=== PATIENT | male | born 1970 | race Caucasian/White ===

== ENCOUNTER 2017-03-21 13:16 | Emergency (ER) | payer SELFPAY ==
[~2017-03-21] VITALS: Ht 187.9 cm; Wt 83.9 kg
[~2017-03-21 13:16] MED LIST: BACTRIM DS 8001 TA1 PO; CLINDAMYCIN HC300 MG PO; CLINDAMYCIN150 MG PO; KEFLEX500 MG PO; LIDOCAINE HCL100 M1 MM; MOTRIN800 MG PO; NAPROSYN500 MG PO; OXYCODONE5 M1 PO; PERCOCET 325 MG1 TA2 PO; SYMBICORT1 AE1 INH; TRAMADOL HCL50 MG PO; TRIMOX500 MG PO; ULTRAM50 MG PO; VALIUM10 MG PO
[2017-03-21] MEDS ORDERED: PROAIR RESPICL90 MCG INH (13:33)
[2017-03-21] MEDS ORDERED: THEOPHYLLINE300 M2 PO (13:33)
[2017-03-21] MEDS ORDERED: BUSPAR5 MG PO (13:34)
[2017-03-21] MEDS ORDERED: SEROQUEL100 MG PO (13:34)
[2017-03-21 13:52] LABS: BASO # 0.1 10*3/uL (0.0-0.1); BASO % 0.6 % (0.0-1.0); EOS # 0.1 10*3/uL (0.0-0.4); EOS % 0.7 % (1.0-4.0); HEMATOCRIT 42.3 % (42.0-52.0); LYMPH % 21.8 % (27.0-41.0); MEAN CORPUSCULAR HGB 28.5 pg (27.0-31.0); MEAN CORPUSCULAR HGB CONC 33.1 g/dl (33.0-37.0); MONO # 0.6 10*3/uL (0.1-1.0); MONO % 6.9 % (3.0-9.0); NEUT # 6.3 10*3/uL (2.3-7.9); NEUT % 69.9 % (47.0-73.0); PLATELET COUNT AUTOMATED 292 10*3/uL (130-400); RED BLOOD COUNT 4.92 10*6/uL (4.50-5.90); RED CELL DISTRI WIDTH 13.7 % (0-14.5); WHITE BLOOD COUNT 9.1 10*3/uL (4.8-10.8)
[2017-03-21 14:08] LABS: ALBUMIN 3.5 gm/dl (3.1-4.5); ALKALINE PHOSPHATASE 72 U/L (45-117); BILIRUBIN, TOTAL 0.4 mg/dl (0.2-1.0); BUN 18 mg/dl (7-24); C-REACTIVE PROTEIN 0.47 MG/DL (0-0.3); CARBON DIOXIDE 30 mmol/L (21-32); CHLORIDE 105 mmol/L (98-107); CPK 19 U/L (39-308); EST GLOM FILT AFRICAN AMERICAN > 60 ml/min; GLUCOSE 104 mg/dL (65-99); MAGNESIUM 1.9 mg/dL (1.5-2.1); SGOT/AST 12 IU/L (3-35); SGPT/ALT 12 U/L (12-78); SODIUM 143 mmol/L (136-145); TOTAL PROTEIN 7.8 gm/dL (6.4-8.2)
[2017-03-21 14:15] LABS: CKMB < 0.5 ng/ml (0.5-3.6); TROPONIN I < 0.015 ng/ml (<0.045)
[2017-03-21 16:55] VITALS: BP 144/70
== END 2017-03-21 16:48 | disposition home or self-care (01) ==
LOC: ED 13:16
PROVIDERS: Emergency Medicine
DX: T42.4X1A Poisoning by benzodiazepines, accidental (unintentional), initial encounter (principal); T40.601A Poisoning by unspecified narcotics, accidental (unintentional), initial encounter; R41.82 Altered mental status, unspecified; J44.9 Chronic obstructive pulmonary disease, unspecified; Z88.0 Allergy status to penicillin; Z79.899 Other long term (current) drug therapy; Y92.9 Unspecified place or not applicable

== ENCOUNTER 2017-07-02 13:35 | Emergency (ER) | payer SELFPAY ==
[~2017-07-02] VITALS: Wt 78.9 kg
[~2017-07-02 13:35] MED LIST changes: +BUSPAR5 MG PO; +PROAIR RESPICL90 MCG INH; +SEROQUEL100 MG PO; +THEOPHYLLINE300 M2 PO
[2017-07-02 13:46] VITALS: BP 154/82
[2017-07-02] MEDS ORDERED: CLINDAMYCIN HC300 MG PO (14:23)
[2017-07-02] MEDS ORDERED: TYLENOL WITH C1 EACH PO (14:23)
== END 2017-07-02 14:49 | disposition home or self-care (01) ==
LOC: ED 13:35
DX: K02.9 Dental caries, unspecified (principal); F17.200 Nicotine dependence, unspecified, uncomplicated; Z88.0 Allergy status to penicillin; Z88.6 Allergy status to analgesic agent

== ENCOUNTER 2017-09-10 09:33 | Inpatient (IN) | payer MEDICAID ==
[2017-09-10] VITALS (11 sets, daily range): BP systolic 118–141; BP diastolic 67–91
[~2017-09-10] VITALS: Ht 187.9 cm; Wt 79.4 kg
[~2017-09-10 09:33] MED LIST changes: +TYLENOL WITH C1 EACH PO
[2017-09-10 10:00] LABS: BASO # 0.1 10*3/uL (0.0-0.1); BASO % 0.4 % (0.0-1.0); EOS # 0.1 10*3/uL (0.0-0.4); EOS % 1.1 % (1.0-4.0); HEMATOCRIT 42.2 % (42.0-52.0); HEMOGLOBIN 14.1 g/dl (14.0-18.0); LYMPH # 1.6 10*3/uL (1.3-4.4); LYMPH % 12.3 % (27.0-41.0); MEAN CELL VOLUME 88.3 fl (80.0-94.0); MEAN CORPUSCULAR HGB 29.5 pg (27.0-31.0); MEAN CORPUSCULAR HGB CONC 33.4 g/dl (33.0-37.0); MEAN PLATELET VOLUME 9.8 fl (9.6-12.3); MONO % 7.6 % (3.0-9.0); NEUT # 9.9 10*3/uL (2.3-7.9); NEUT % 78.2 % (47.0-73.0); PLATELET COUNT AUTOMATED 232 10*3/uL (130-400); RED BLOOD COUNT 4.78 10*6/uL (4.50-5.90); RED CELL DISTRI WIDTH 12.7 % (0-14.5); WHITE BLOOD COUNT 12.7 10*3/uL (4.8-10.8)
[2017-09-10 10:16] LABS: ALBUMIN 3.6 gm/dl (3.1-4.5); ALKALINE PHOSPHATASE 78 U/L (45-117); BUN 10 mg/dl (7-24); CHLORIDE 110 mmol/L (98-107); CREATININE 1.05 mg/dL (0.70-1.30); POTASSIUM 4.1 mmol/L (3.5-5.1); SGOT/AST 13 IU/L (3-35); SGPT/ALT 12 U/L (12-78); SODIUM 143 mmol/L (136-145); TOTAL PROTEIN 7.7 gm/dL (6.4-8.2)
[2017-09-10 10:18] LABS: TROPONIN I < 0.015 ng/ml (<0.045)
--- NOTE | 2017-09-10 16:00 | NUR ---
[facility] 46, admitted to , under the services of SHAUNA Gonzalez DO with a diagnosis of CHEST PAIN. Chief complaint is CHEST PAIN WITH COUGH. Patient arrived via wheel chair from ER. Monitor applied. Initial assessment completed. Vital signs taken and recorded. SHAUNA GONZALEZ DO notified of admission to the unit. Orders received. See assessment for past medical history, medications and allergies. Patient and/or family oriented to unit. [facility] visitation policy reviewed. Clothing/patient valuable form completed. MARTIN BOLANOS
--- NOTE | 2017-09-10 18:37 | NUR ---
NORCO GIVEN FOR C/O GENERALIZED DISCOMFORT. WILL MONITOR.
[2017-09-11] VITALS: BP 126/81
[2017-09-11 06:35] LABS: BASO % 0.2 % (0.0-1.0); HEMATOCRIT 43.1 % (42.0-52.0); HEMOGLOBIN 14.4 g/dl (14.0-18.0); LYMPH # 1.1 10*3/uL (1.3-4.4); LYMPH % 12.2 % (27.0-41.0); MEAN CELL VOLUME 88.9 fl (80.0-94.0); MEAN CORPUSCULAR HGB 29.7 pg (27.0-31.0); MEAN CORPUSCULAR HGB CONC 33.4 g/dl (33.0-37.0); MEAN PLATELET VOLUME 9.8 fl (9.6-12.3); MONO # 0.2 10*3/uL (0.1-1.0); MONO % 1.9 % (3.0-9.0); NEUT % 85.6 % (47.0-73.0); PLATELET COUNT AUTOMATED 234 10*3/uL (130-400); RED BLOOD COUNT 4.85 10*6/uL (4.50-5.90); RED CELL DISTRI WIDTH 12.6 % (0-14.5); WHITE BLOOD COUNT 9.3 10*3/uL (4.8-10.8)
[2017-09-11 07:03] LABS: BUN 11 mg/dl (7-24); CHLORIDE 107 mmol/L (98-107); CHOLESTEROL 109 mg/dL (<200); CREATININE 1.03 mg/dL (0.70-1.30); HDL CHOLESTEROL 49 mg/dl (40-60); LDL CHOLESTEROL 50 mg/dL (9-159); POTASSIUM 4.5 mmol/L (3.5-5.1); SODIUM 141 mmol/L (136-145); TRIGLYCERIDES 48 mg/dl (<150); VLDL CHOLESTEROL 10 mg/dL (6-40)
[2017-09-11 07:09] LABS: THYROID STIM HORMONE (HS) 0.343 uIU/ml (0.358-4.75)
[2017-09-11 07:59] VITALS: BP 136/74
[2017-09-11 09:30] LABS: VITAMIN D, 25-HYDROXY 22.9 ng/mL (30-100)
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
[2017-09-11 12:00] VITALS: BP 120/74
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
--- NOTE | 2017-09-11 13:31 | NUR ---
Patient signed out AMA. Patient encouraged to stay and advised of possible consequences of premature discharge. Physician DR CELIS and supervisor dock NATALI SANCHEZ notified. Patient instructed what to do regarding care post-departure from the hospital; emergency phone numbers provided. Patent was accompanied by . DEMETRICE BONNER
== END 2017-09-11 13:31 | disposition left against medical advice (07) | DRG 871 ==
LOC: ED 09:33 → 4E 13:19 → EDHOLD 13:19 → 4E 14:53
PROVIDERS: Internal Medicine; Nurse Practitioner Family; ADMIT Internal Medicine
DX: A41.9 Sepsis, unspecified organism (principal); J18.9 Pneumonia, unspecified organism; E87.8 Other disorders of electrolyte and fluid balance, not elsewhere classified; J44.0 Chronic obstructive pulmonary disease with (acute) lower respiratory infection; J44.1 Chronic obstructive pulmonary disease with (acute) exacerbation; F17.210 Nicotine dependence, cigarettes, uncomplicated; I10 Essential (primary) hypertension; Z53.21 Procedure and treatment not carried out due to patient leaving prior to being seen by health care provider; Z88.0 Allergy status to penicillin; Z86.14 Personal history of Methicillin resistant Staphylococcus aureus infection; Z79.899 Other long term (current) drug therapy; Z71.6 Tobacco abuse counseling

== ENCOUNTER 2017-10-17 21:37 | Emergency (ER) | payer MEDICAID ==
[~2017-10-17] VITALS: Ht 187.9 cm; Wt 79.4 kg
[2017-10-17 21:47] VITALS: BP 151/91
[2017-10-17] MEDS ORDERED: ANAPROX DS550 MG PO (21:58)
[2017-10-17] MEDS ORDERED: CLINDAMYCIN HC300 MG PO (21:58)
== END 2017-10-17 22:57 | disposition home or self-care (01) ==
LOC: ED 21:37
DX: K04.7 Periapical abscess without sinus (principal); F17.200 Nicotine dependence, unspecified, uncomplicated; Z88.0 Allergy status to penicillin; Z79.899 Other long term (current) drug therapy

== ENCOUNTER 2017-12-24 19:05 | Emergency (ER) | payer MEDICAID ==
[~2017-12-24] VITALS: Ht 187.9 cm; Wt 75.7 kg
[~2017-12-24 19:05] MED LIST changes: +ANAPROX DS550 MG PO
[2017-12-24 19:08] VITALS: BP 137/80
[2017-12-24] MEDS ORDERED: ATIVAN1 MG PO (19:35)
== END 2017-12-24 19:38 | disposition home or self-care (01) ==
LOC: ED 19:05
DX: F41.1 Generalized anxiety disorder (principal); F43.0 Acute stress reaction; J44.9 Chronic obstructive pulmonary disease, unspecified; F17.200 Nicotine dependence, unspecified, uncomplicated; Z88.0 Allergy status to penicillin

== ENCOUNTER 2018-03-07 19:26 | Emergency (ER) | payer MEDICAID ==
[~2018-03-07] VITALS: Ht 187.9 cm; Wt 86.2 kg
[~2018-03-07 19:26] MED LIST changes: +ATIVAN1 MG PO
[2018-03-07 19:29] VITALS: BP 142/95
[2018-03-07 19:43] LABS: BASO # 0.1 10*3/uL (0.0-0.1); BASO % 0.7 % (0.0-1.0); EOS # 0.2 10*3/uL (0.0-0.4); EOS % 1.8 % (1.0-4.0); HEMATOCRIT 48.5 % (42.0-52.0); LYMPH # 2.2 10*3/uL (1.3-4.4); LYMPH % 25.3 % (27.0-41.0); MEAN CELL VOLUME 87.2 fl (80.0-94.0); MEAN CORPUSCULAR HGB 28.8 pg (27.0-31.0); MEAN PLATELET VOLUME 9.4 fl (9.6-12.3); MONO # 0.6 10*3/uL (0.1-1.0); MONO % 7.2 % (3.0-9.0); NEUT # 5.5 10*3/uL (2.3-7.9); NEUT % 64.8 % (47.0-73.0); PLATELET COUNT AUTOMATED 230 10*3/uL (130-400); RED BLOOD COUNT 5.56 10*6/uL (4.50-5.90); RED CELL DISTRI WIDTH 14.8 % (0-14.5); WHITE BLOOD COUNT 8.5 10*3/uL (4.8-10.8)
[2018-03-07 19:59] LABS: ALBUMIN 3.9 gm/dl (3.1-4.5); ALKALINE PHOSPHATASE 80 U/L (45-117); BUN 14 mg/dl (7-24); CHLORIDE 104 mmol/L (98-107); CPK 299 U/L (39-308); LIPASE 77 U/L (73-393); POTASSIUM 4.5 mmol/L (3.5-5.1); SGOT/AST 24 IU/L (3-35); SGPT/ALT 27 U/L (12-78); SODIUM 142 mmol/L (136-145)
[2018-03-07 20:00] LABS: CKMB 0.8 ng/ml (0.5-3.6)
== END 2018-03-08 00:29 ==
LOC: ED 19:26
PROVIDERS: Emergency Medicine
DX: J44.1 Chronic obstructive pulmonary disease with (acute) exacerbation (principal); F41.9 Anxiety disorder, unspecified; Z88.0 Allergy status to penicillin

== ENCOUNTER 2018-09-20 14:56 | Emergency (ER) | payer MEDICAID ==
[~2018-09-20] VITALS: Ht 182.8 cm; Wt 68.0 kg
[2018-09-20 15:02] VITALS: BP 119/82
== END 2018-09-20 15:21 | disposition left against medical advice (07) ==
LOC: ED 14:56
DX: T50.901A Poisoning by unspecified drugs, medicaments and biological substances, accidental (unintentional), initial encounter (principal); F17.210 Nicotine dependence, cigarettes, uncomplicated; Z88.0 Allergy status to penicillin; Z79.899 Other long term (current) drug therapy; Y92.098 Other place in other non-institutional residence as the place of occurrence of the external cause

== ENCOUNTER 2019-07-31 16:08 | Emergency (ER) | payer MEDICAID ==
[~2019-07-31] VITALS: Ht 187.9 cm; Wt 77.1 kg
[~2019-07-31 16:08] MED LIST changes: +DOXEPIN HCL50 MG PO; +EC-NAPROXEN375 MG PO; +ZITHROMAX250 MG PO
[2019-07-31 16:09] VITALS: BP 121/80
[2019-07-31] MEDS ORDERED: TOBRAMYCIN 5 ML5 M1 OPH (16:44)
[2019-07-31] MEDS ORDERED: ACULAR 0.5%3 ML OPH (16:44)
== END 2019-07-31 16:55 | disposition home or self-care (01) ==
LOC: ED 16:08
DX: T15.01XA Foreign body in cornea, right eye, initial encounter (principal); F17.200 Nicotine dependence, unspecified, uncomplicated; Z88.0 Allergy status to penicillin; Z79.899 Other long term (current) drug therapy; Z79.2 Long term (current) use of antibiotics; X58.XXXA Exposure to other specified factors, initial encounter; Y93.89 Activity, other specified; Y92.89 Other specified places as the place of occurrence of the external cause; Y99.8 Other external cause status

== ENCOUNTER 2023-11-07 06:10 | Emergency (ER) | payer SELFPAY ==
[~2023-11-07 06:10] MED LIST changes: +ACULAR 0.5%3 ML OPH; +TOBRAMYCIN 5 ML5 M1 OPH
[2023-11-07 06:51] LABS: BASO # 0.1 10*3/uL (0.0-0.1); BASO % 0.6 % (0.0-1.0); EOS # 0.1 10*3/uL (0.0-0.4); EOS % 1.1 % (1.0-4.0); HEMATOCRIT 50.7 % (42.0-52.0); LYMPH # 1.4 10*3/uL (1.3-4.4); LYMPH % 16.3 % (27.0-41.0); MEAN CELL VOLUME 90.9 fl (80.0-94.0); MEAN PLATELET VOLUME 9.6 fl (9.6-12.3); MONO # 0.6 10*3/uL (0.1-1.0); MONO % 7.3 % (3.0-9.0); NEUT # 6.2 10*3/uL (2.3-7.9); NEUT % 74.2 % (47.0-73.0); PLATELET COUNT AUTOMATED 235 10*3/uL (130-400); RED BLOOD COUNT 5.58 10*6/uL (4.50-5.90); WHITE BLOOD COUNT 8.3 10*3/uL (4.8-10.8)
[2023-11-07 07:12] LABS: ALKALINE PHOSPHATASE 79 U/L (46-116); BUN 13 mg/dl (9-23); CHLORIDE 103 mmol/L (98-107); POTASSIUM 4.1 mmol/L (3.4-5.1); SGPT/ALT 32 U/L (5-49); TOTAL PROTEIN 8.3 gm/dL (6.0-8.0)
[2023-11-07 07:13] LABS: ETHYL ALCOHOL < 3.0 mg/dl (<3)
[2023-11-07 10:53] VITALS: BP 125/85
[2023-11-07 11:25] LABS: BILIRUBIN Negative (Negative); BLOOD Negative (Negative); CLARITY Clear (Clear); COLOR Yellow (Yellow); GLUCOSE Negative (Negative); KETONE Negative (Negative); LEUKO ESTERASE Negative (Negative); NITRITE Negative (Negative); PH 5.5 (4.5-8.0); UROBILINOGEN 0.2 E.U./dl (0.0-1.0)
[2023-11-07 11:32] LABS: URINE AMPHETAMINES Negative (1000ng/ml); URINE BARBITURATES Negative (200ng/ml); URINE BENZODIAZEPINES Negative (200ng/ml); URINE CANNABINOIDS (THC) Positive (50ng/ml); URINE COCAINE Positive (300ng/ml); URINE METHADONE Negative (300ng/ml); URINE OPIATES Negative (300ng/ml); URINE PHENCYCLIDINE Negative (25ng/ml)
[2023-11-07 11:39] LABS: MUCOUS 2+
[2023-11-07 11:40] LABS: RBC 0-2 rbc/hpf (0-2)
[2023-11-07] MEDS ORDERED: VIBRAMYCIN HYC100 MG PO ×3 (11:54→13:13)
== END 2023-11-07 13:57 | disposition home or self-care (01) ==
LOC: ED 06:10
PROVIDERS: Emergency Medicine
DX: F41.0 Panic disorder [episodic paroxysmal anxiety] (principal); N39.0 Urinary tract infection, site not specified; J44.9 Chronic obstructive pulmonary disease, unspecified; E78.00 Pure hypercholesterolemia, unspecified; F41.9 Anxiety disorder, unspecified; Z88.0 Allergy status to penicillin; Z98.890 Other specified postprocedural states; Z72.0 Tobacco use; Z79.899 Other long term (current) drug therapy

== ENCOUNTER 2023-12-12 13:29 | Emergency (ER) | payer OTHER ==
[~2023-12-12] VITALS: Ht 187.9 cm; Wt 72.6 kg
[~2023-12-12 13:29] MED LIST changes: +VIBRAMYCIN HYC100 MG PO
[2023-12-12 13:41] VITALS: BP 132/93
== END 2023-12-12 14:50 | disposition left against medical advice (07) ==
LOC: ED 13:29
DX: R21 Rash and other nonspecific skin eruption (principal); J44.9 Chronic obstructive pulmonary disease, unspecified; Z88.0 Allergy status to penicillin; Z53.21 Procedure and treatment not carried out due to patient leaving prior to being seen by health care provider

== ENCOUNTER 2024-03-14 11:26 | Emergency (ER) | payer OTHER ==
[~2024-03-14] VITALS: Ht 187.9 cm; Wt 68.0 kg
[2024-03-14 11:35] VITALS: BP 107/77
[2024-03-14 12:26] LABS: BILIRUBIN Negative (Negative); BLOOD Negative (Negative); CLARITY Clear (Clear); COLOR Yellow (Yellow); GLUCOSE Negative (Negative); KETONE Negative (Negative); LEUKO ESTERASE Negative (Negative); NITRITE Negative (Negative); PH 5.5 (4.5-8.0); SPECIFIC GRAVITY 1.025 (1.001-1.030)
[2024-03-14 12:43] LABS: BACTERIA 1+; MUCOUS 1+
[2024-03-14] MEDS ORDERED: ZUBSOLV 8.6-2.1 EACH SL (13:14)
[2024-03-14 13:33] LABS: URINE AMPHETAMINES Positive (1000ng/ml); URINE BARBITURATES Negative (200ng/ml); URINE BENZODIAZEPINES Negative (200ng/ml); URINE CANNABINOIDS (THC) Positive (50ng/ml); URINE COCAINE Positive (300ng/ml); URINE METHADONE Negative (300ng/ml); URINE OPIATES Negative (300ng/ml); URINE PHENCYCLIDINE Negative (25ng/ml)
== END 2024-03-14 13:08 | disposition home or self-care (01) ==
LOC: ED 11:26
PROVIDERS: Emergency Medicine
DX: F11.20 Opioid dependence, uncomplicated (principal); F17.200 Nicotine dependence, unspecified, uncomplicated; Z88.0 Allergy status to penicillin; Z79.2 Long term (current) use of antibiotics; Z98.890 Other specified postprocedural states

== ENCOUNTER 2024-04-09 13:30 | Emergency (ER) | payer OTHER ==
[~2024-04-09] VITALS: Ht 182.8 cm; Wt 68.0 kg
[~2024-04-09 13:30] MED LIST changes: +ZUBSOLV 8.6-2.1 EACH SL
[2024-04-09 13:39] VITALS: BP 167/85
[2024-04-09] MEDS ORDERED: CEPHALEXIN500 M1 PO (13:48)
[2024-04-09] MEDS ORDERED: SEPTDS PO (13:48)
[2024-04-09] MEDS ORDERED: Sulfamethoxazole/Trimethopri 1 TAB TAB PO ONE (13:50)
[2024-04-09] MEDS ORDERED: CEPHALEXIN 500 MG CAP PO ONE (13:50)
== END 2024-04-09 14:39 | disposition home or self-care (01) ==
LOC: ED 13:30
DX: L03.114 Cellulitis of left upper limb (principal); L03.113 Cellulitis of right upper limb; L03.116 Cellulitis of left lower limb; L03.115 Cellulitis of right lower limb; F41.9 Anxiety disorder, unspecified; J44.9 Chronic obstructive pulmonary disease, unspecified; F17.200 Nicotine dependence, unspecified, uncomplicated; Z86.14 Personal history of Methicillin resistant Staphylococcus aureus infection; Z88.0 Allergy status to penicillin; Z79.899 Other long term (current) drug therapy; Z98.890 Other specified postprocedural states

== ENCOUNTER 2024-07-01 20:45 | Emergency (ER) | payer OTHER ==
[~2024-07-01] VITALS: Ht 187.9 cm; Wt 70.3 kg
[~2024-07-01 20:45] MED LIST changes: +CEPHALEXIN500 M1 PO; +SEPTDS PO
[2024-07-01 21:03] VITALS: BP 144/82
[2024-07-01] MEDS ORDERED: Tdap Vaccine 0.5 ML SYR (Adult Vaccine) IM ONE (21:10)
[2024-07-01] MEDS ORDERED: Bacitracin Zinc 14 GM TUBE T ONE (21:15)
[2024-07-01] MEDS ORDERED: Acetaminophen/Oxycodone 5 MG/325 MG TABLET PO ONE (21:15)
[2024-07-01] MEDS ORDERED: Lidocaine Hydrochloride 2% 10 ML AMP SC ONE (21:15)
[2024-07-01] MEDS ORDERED: Sulfamethoxazole/Trimethopri 1 TAB TAB PO ONE (22:30)
[2024-07-01] MEDS ORDERED: NAPROSYN500 MG PO (22:45)
== END 2024-07-01 22:58 | disposition home or self-care (01) ==
LOC: ED 20:45
DX: S81.812A Laceration without foreign body, left lower leg, initial encounter (principal); S93.402A Sprain of unspecified ligament of left ankle, initial encounter; F41.9 Anxiety disorder, unspecified; J44.9 Chronic obstructive pulmonary disease, unspecified; E78.00 Pure hypercholesterolemia, unspecified; F17.200 Nicotine dependence, unspecified, uncomplicated; Z88.0 Allergy status to penicillin; Z98.890 Other specified postprocedural states; W22.8XXA Striking against or struck by other objects, initial encounter; Y93.89 Activity, other specified; Y92.89 Other specified places as the place of occurrence of the external cause; Y99.8 Other external cause status

== ENCOUNTER 2025-01-07 19:03 | Emergency (ER) | payer OTHER ==
[~2025-01-07] VITALS: Ht 187.9 cm; Wt 68.0 kg
[2025-01-07 19:03] VITALS: BP 154/82
[2025-01-07 19:50] LABS: BASO % 0.3 % (0.0-1.0); EOS # 0.2 10*3/uL (0.0-0.4); EOS % 2.9 % (1.0-4.0); HEMATOCRIT 39.7 % (42.0-52.0); MEAN CELL VOLUME 87.8 fl (80.0-94.0); MEAN CORPUSCULAR HGB 28.8 pg (27.0-31.0); MEAN CORPUSCULAR HGB CONC 32.7 g/dl (33.0-37.0); MEAN PLATELET VOLUME 8.9 fl (9.6-12.3); MONO # 0.6 10*3/uL (0.1-1.0); MONO % 9.1 % (3.0-9.0); NEUT # 4.7 10*3/uL (2.3-7.9); PLATELET COUNT AUTOMATED 194 10*3/uL (130-400); RED BLOOD COUNT 4.52 10*6/uL (4.50-5.90); RED CELL DISTRI WIDTH 13.2 % (0-14.5); WHITE BLOOD COUNT 6.9 10*3/uL (4.8-10.8)
[2025-01-07 19:54] LABS: URINE AMPHETAMINES Negative (1000ng/ml); URINE BARBITURATES Negative (200ng/ml); URINE BENZODIAZEPINES Negative (200ng/ml); URINE CANNABINOIDS (THC) Positive (50ng/ml); URINE COCAINE Positive (300ng/ml); URINE METHADONE Negative (300ng/ml); URINE OPIATES Positive (300ng/ml); URINE PHENCYCLIDINE Negative (25ng/ml)
[2025-01-07 20:11] LABS: ALKALINE PHOSPHATASE 84 U/L (46-116); BUN 12 mg/dl (9-23); CHLORIDE 104 mmol/L (98-107); CPK 32 U/L (34-171); POTASSIUM 3.9 mmol/L (3.4-5.1); SGPT/ALT 9 U/L (5-49); TOTAL PROTEIN 6.9 gm/dL (6.0-8.0)
[2025-01-07] MEDS ORDERED: LORazepam 2 MG TAB PO ONE (20:45)
[2025-01-07] MEDS ORDERED: Ondansetron Hydrochloride 4 MG TAB SL ONE (20:45)
[2025-01-07] MEDS ORDERED: Sulfamethoxazole/Trimethopri 1 TAB TAB PO ONE (21:20)
[2025-01-07] MEDS ORDERED: SEPTDS PO (21:33)
== END 2025-01-07 23:11 | disposition home or self-care (01) ==
LOC: ED 19:03
PROVIDERS: Internal Medicine
DX: L03.90 Cellulitis, unspecified (principal); G47.00 Insomnia, unspecified; F19.10 Other psychoactive substance abuse, uncomplicated; J44.9 Chronic obstructive pulmonary disease, unspecified; F17.200 Nicotine dependence, unspecified, uncomplicated; Z79.899 Other long term (current) drug therapy; Z88.0 Allergy status to penicillin; Z98.890 Other specified postprocedural states

== ENCOUNTER 2025-01-11 15:50 | Emergency (ER) | payer OTHER ==
[~2025-01-11] VITALS: Ht 187.9 cm; Wt 68.0 kg
[2025-01-11 15:56] VITALS: BP 109/78
[2025-01-11] MEDS ORDERED: Ketorolac Tromethamine 15 MG/ML VIAL IV ONE (16:10)
[2025-01-11] MEDS ORDERED: hydrOXYzine pamoate 25 MG CAP PO ONE (16:10)
[2025-01-11] MEDS ORDERED: SODIUM CHLORIDE 0.9% 1,000 ML IV ONE (16:10)
[2025-01-11] MEDS ORDERED: FAMOTIDINE 50 ML IV ONE (16:10)
[2025-01-11 16:48] LABS: BASO % 0.4 % (0.0-1.0); EOS # 0.1 10*3/uL (0.0-0.4); EOS % 1.7 % (1.0-4.0); HEMATOCRIT 43.7 % (42.0-52.0); MEAN CELL VOLUME 89.2 fl (80.0-94.0); MEAN CORPUSCULAR HGB 28.2 pg (27.0-31.0); MEAN CORPUSCULAR HGB CONC 31.6 g/dl (33.0-37.0); MEAN PLATELET VOLUME 8.8 fl (9.6-12.3); MONO # 0.7 10*3/uL (0.1-1.0); MONO % 9.6 % (3.0-9.0); NEUT # 4.8 10*3/uL (2.3-7.9); NEUT % 68.9 % (47.0-73.0); PLATELET COUNT AUTOMATED 193 10*3/uL (130-400); RED CELL DISTRI WIDTH 13.7 % (0-14.5); WHITE BLOOD COUNT 6.9 10*3/uL (4.8-10.8)
[2025-01-11] MEDS ORDERED: 'CLONIDINE0.1 MG PO (16:55)
[2025-01-11] MEDS ORDERED: HYDROXYZINE PAM25 M1 PO (16:55)
[2025-01-11] MEDS ORDERED: CYCLOBENZAPRINE5 M3 PO (16:55)
[2025-01-11] MEDS ORDERED: OMEPRAZOLE MAGN20 MG PO (16:57)
[2025-01-11] MEDS ORDERED: CETIRIZINE HYDR10 MG PO (16:57)
[2025-01-11 17:15] LABS: BUN 18 mg/dl (9-23); CHLORIDE 106 mmol/L (98-107); POTASSIUM 4.2 mmol/L (3.4-5.1)
[2025-01-11] MEDS ORDERED: IOHEXOL 350 MG/ML 100 ML VIAL IV ONE (17:15)
[2025-01-11] MEDS ORDERED: SODIUM CHLORIDE 0.9% 100 ML BAG IV ONE (17:15)
[2025-01-11] MEDS ORDERED: VISTARIL25 MG PO (18:12)
== END 2025-01-11 18:30 | disposition home or self-care (01) ==
LOC: ED 15:50
PROVIDERS: Emergency Medicine
DX: R07.89 Other chest pain (principal); R20.0 Anesthesia of skin; R20.2 Paresthesia of skin; R06.02 Shortness of breath; R53.1 Weakness; M54.2 Cervicalgia; R12 Heartburn; F17.200 Nicotine dependence, unspecified, uncomplicated; J44.9 Chronic obstructive pulmonary disease, unspecified; Z88.0 Allergy status to penicillin; Z79.899 Other long term (current) drug therapy; Z79.2 Long term (current) use of antibiotics; Z98.890 Other specified postprocedural states

== ENCOUNTER 2025-05-20 05:35 | Emergency (ER) | payer OTHER ==
[~2025-05-20] VITALS: Ht 187.9 cm; Wt 63.0 kg
[~2025-05-20 05:35] MED LIST changes: +'CLONIDINE0.1 MG PO; +CETIRIZINE HYDR10 MG PO; +CYCLOBENZAPRINE5 M3 PO; +HYDROXYZINE PAM25 M1 PO; +OMEPRAZOLE MAGN20 MG PO; +VISTARIL25 MG PO
[2025-05-20 05:45] VITALS: BP 133/98
[2025-05-20] MEDS ORDERED: cloNIDine 0.2 MG PATCH T SCH (05:50)
[2025-05-20] MEDS ORDERED: Ondansetron Hydrochloride 4 MG TAB PO ONE (05:50)
[2025-05-20] MEDS ORDERED: HYDROXYZINE HCL25 MG PO (05:52)
[2025-05-20] MEDS ORDERED: Ondansetron4 MG PO (05:52)
[2025-05-20] MEDS ORDERED: cloNIDine 0.2 MG PATCH T ONE (10:17)
== END 2025-05-20 06:12 | disposition home or self-care (01) ==
LOC: ED 05:35
DX: F11.23 Opioid dependence with withdrawal (principal); R11.0 Nausea; Z88.0 Allergy status to penicillin; Z79.899 Other long term (current) drug therapy; Z98.890 Other specified postprocedural states